=== PATIENT | male | born 1950 | race Caucasian/White ===

== ENCOUNTER 2025-07-27 21:20 | Observation (INO) | payer OTHER, SELFPAY ==
[2025-07-27 15:13] VITALS: BP 166/90
[2025-07-27 17:25] VITALS: BP 150/136
[2025-07-27 18:00] VITALS: BP 150/85
[2025-07-27] MEDS: MORPHINE SULFATE 4 MG IV (18:24)
[2025-07-27] MEDS: DECADRON 10 MG IV (18:24)
[2025-07-27 18:35] VITALS: BMI 40.9
[2025-07-27 18:44] LABS: Hematocrit 42.0 % (39.0-52.0); Hemoglobin 14.0 g/dL (13.0-18.0); Mean Corp Hgb Conc. 33.3 g/dL (33.0-37.0); Mean Corpuscular Volume 87.5 fL (80.0-94.0); Nucleated Red Blood Cells % 0 % (-); Platelet Count 276 10^3/uL (130-400); Red Cell Dist. Width 14.6 % (11.5-14.5)
[2025-07-27 19:01] LABS: ALT (SGPT) 25 U/L (0-50); AST (SGOT) 25 U/L (17-59); Albumin 4.5 g/dl (3.5-5.0); Alkaline Phosphatase 71 U/L (38-126); Blood Urea Nitrogen 14 mg/dl (9-20); Calcium 9.6 mg/dl (8.4-10.2); Carbon Dioxide 28 mmol/L (22-30); Chloride 103 mmol/L (98-107); Estimated Creatinine Clearance 97 ml/min; Glucose 99 mg/dl (70-99); Potassium 4.2 mmol/L (3.5-5.1); Sodium 136 mmol/L (135-145); Total Protein 7.4 g/dl (6.3-8.2); eGFR > 60.00
--- NOTE | 2025-07-27 19:22 | ED.GENMED ---
History of Present Illness
General
Chief Complaint: Generalized Pain
Time Seen by Provider: 07/27/25 17:46
History of Present Illness
History of Present Illness:
75-year-old male with history of spinal stenosis, PE on Xarelto presenting to the emergency department for right-sided inguinal pain. Patient reports symptoms started yesterday, woke up with the pain. Denies any known injury or trauma. Reports
that it was initially in bilateral hips, however has since progressed to just right side. He went to urgent care at [facility], had x-rays done which were negative. He was told to schedule an outpatient MRI. He notes that he cannot get an MRI until
August 03. He presents for persistent pain and pain with ambulation. Denies numbness or tingling. Denies bowel or bladder issues. Denies fever. He took Tylenol prior to arrival with mild improvement of pain. The provider at [facility]
started him on a Medrol Dosepak which he has not yet started. Denies additional acute medical complaints.
Phy Exam
Physical Exam
Physical Exam:
General: Well-appearing, no clinical signs of dehydration, nontoxic and in no acute distress
HEENT: protecting airway
Neck: appears supple
CV: Normal heart rate, regular rhythm
Resp: No accessory muscle use, no increased work of breathing, lungs clear to auscultation bilaterally
Abd: Soft and non-distended, no tenderness to palpation, normal bowel sounds
Extremities: No deformities, no swelling. No tenderness to the spine or lumbar musculature. Mild tenderness to the right inguinal region. No overlying skin changes. No palpation of a hernia. Range of motion of the right lower extremity is
limited secondary to pain, grossly intact. Distal sensation and pulses intact. No swelling or erythema
Neuro: alert, no focal neurologic deficit
: deferred
Rectal: deferred
Psych: Normal affect
Skin: Intact
Course
Orders/Labs/Results
Orders:
Orders
07/27/25 18:12
CT Abd/pelvis W Iv Cont Urgent
Comment:
Reason For Exam: right groin pain
Dexamethasone Sod Phosphate [Decadron] 10 mg IV NOW STA
Morphine Sulfate 4 mg IV NOW STA
07/27/25 18:20
Complete Blood Count/With Diff Urgent
Comprehensive Metabolic Panel Urgent
07/27/25 19:04
diazePAM [Valium Injection] 2 mg IV NOW STA
Abnormal Lab Results
07/27/25
18:20
RDW 14.6 H %
(11.5-14.5)
MPV 10.5 H fL
(7.4-10.4)
Absolute Monos (auto) 0.9 H 10^3/uL
(0.1-0.6)
Monocytes % 10.5 H %
(1.7-9.3)
Total Bilirubin 1.5 H mg/dl
(0.2-1.3)
07/27/25 18:20
07/27/25 18:20
Vital Signs
Initial and Last Documented VS:
Initial Vital Signs
Temp Pulse Resp BP Pulse Ox
98.8 F 81 20 166/90 96
07/27/25 15:13 07/27/25 15:13 07/27/25 15:13 07/27/25 15:13 07/27/25 15:13
Last Documented Vital Signs
Temp Pulse Resp BP Pulse Ox
98.8 F 86 25 150/136 95
07/27/25 15:13 07/27/25 17:30 07/27/25 17:30 07/27/25 17:25 07/27/25 19:25
MDM/Problems Addressed
MDM/Problems Addressed:
75-year-old male with history of PE on Xarelto presenting to the emergency department for right-sided hip/inguinal pain. Vital signs are significant for mild hypertension.
On exam, patient is resting comfortably, no significant distress. Pain is particularly expressed with range of motion to the right lower extremity, focused to the right inguinal region. Ultimately suspect likely radiculopathy. Lower suspicion for
fracture or malalignment in the absence of direct trauma. No tenderness to the spine with lower suspicion for any significant lumbar pathology. No signs of infection, afebrile, no erythema or warmth. Low concern for any spinal compromise with
sensation and motor grossly intact. No red flag symptoms, denies any bowel or bladder issues. Reportedly normal x-rays prior to arrival. No indication for emergent MRI. Will treat patient's pain. CT imaging to ensure no additional acute
pathology given location in the inguinal region. Without present concern for DVT, anticoagulated and compliant with anticoagulation.
20:20 - Labs unremarkable and CT without acute pathology. Patient was able to stand up, however cannot bear weight. For this reason unsafe disposition home. Will admit for pain control and PT consultation
*Pulse Oximetry
SaO2: 95
Oxygen Mode of Delivery: Room air
Patient hypoxic: no
*Critical Care Note
Total Time (30-74mins, 75-104mins- exclusive of procedures): Not Applicable
ED Attending Note
-
Portions of this chart may have been created with voice recognition software.� Occasional wrong word or��sound alike� substitutions may have occurred due to the inherent limitations of voice recognition software.
Discharge Plan
Departure
Prescriptions:
No Action
Xarelto 20 mg Tablet
20 mg PO DAILY
Referrals:
Carlos Etienne DO [Family Provider, Family Practice]
Interventions
Interventions:
*Risk Screen - Suicide Last Done: 07/27/25 15:13
*Neglect/Abuse Screening Last Done: 07/27/25 15:13
Discharge Date and Time
Print Language: BULGARIAN
[2025-07-27] MEDS: VALIUM INJECTION 2 MG IV (19:51)
[2025-07-27 20:50] VITALS: BP 141/98
[2025-07-27 20:56] VITALS: BP 141/98
--- NOTE | 2025-07-27 20:57 | HPS.HSE ---
Addendum entered and electronically signed by Roe Pratt DO 07/27/25 21:39:
Patient seen and examined independently. Agree with findings and plan as set forth by Danay Fritz PA-C.
Patient is a 75y M with PMH significant for hypertension and spinal stenosis who presents c/o R groin pain. Patient states that he woke with this pain yesterday AM. 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 No other specific injury, trauma, etc.
No fall. He did his usual activities yesterday during the day and today his pain was notably worse. Pain is localized to the R groin. Pain is worse with standing / walking.
No numbness / tingling in the RLE. No back pain. No weakness.
Ass:
Right Groin Pain
Benign Hypertension
Asthma without Acute Exacerbation
Spinal Stenosis
History of Pulmonary Embolism
Plan:
Observe overnight for further evaluation and treatment.
Symptoms / exam and imaging findings (or lack thereof) seem c/w R groin soft tissue injury.
Apparently unable to stand / walk in the ED preventing discharge.
Pain control overnight.
PT eval in AM.
Can pursue MRI as an outpatient as planned, but doubt it will alter plan of care / management.
Continue usual outpatient medication regimen.
Original Note:
Family Physician
-
Family Physician: Carlos Etienne
Chief Complaint
-
Right Groin Pain
History of Present Illness
Patient is a 75 y/o male past medical history of hypertension, hyperlipidemia, pulmonary embolism on anticoagulation, asthma, BPH and spinal stenosis who presents with right groin pain. Patient reports he awoke yesterday morning and had right groin
with movement of the right leg and walking. Patient states pain was not as severe. 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 He reports inability
to stand due severity of the pain in the right groin. He denies any back pain, or pain extedning down the leg. He denies any numbness, tingling or weakness of the leg.
Medical History
Past Medical History
Past Medical History: Reports Other
Additional Past Medical History:
Pulmonary Embolism
Essential Hypertension
Hyperlipidemia
Asthma
Spinal Stenosis with Cervical Radiculopathy
BPH
Past Surgical History: Reports Other
Additional Past Surgical History:
Cervical Fusion
Lumbar Laminectomy
Social History
Tobacco: Former Smoker
Alcohol: Occasional
Family History
Family History: Not pertinent
Allergies / Home Medications
Allergies reflects when Allergies were last updated in [facility].
Home Medications with original date entered in [facility]
Allergy/Medication List:
Allergies
Allergy/AdvReac Type Severity Reaction Status Date / Time
naproxen (From Naprosyn) Allergy Anaphylaxis Verified 07/27/25 15:12
Home Medications
acetaminophen 650 mg tablet,extended release (Tylenol Arthritis Pain) 1,300 mg PO [id number] PRN mild pain 07/27/25
amlodipine 2.5 mg tablet (Norvasc) 2.5 mg PO HS Blood Pressure 07/27/25
atorvastatin 20 mg tablet (Lipitor) 20 mg PO QPM statin 07/27/25
loratadine 10 mg tablet (Claritin) 10 mg PO DAILY Allergies 07/27/25
methylprednisolone 4 mg tablets in a dose pack (Medrol (George)) 0 mg PO PER PKG DIR Infection 07/27/25
montelukast 10 mg tablet (Singulair) 10 mg PO QPM Allergies 07/27/25
pregabalin 200 mg capsule (Lyrica) 200 mg PO TID moderate pains 07/27/25
rivaroxaban 20 mg tablet (Xarelto) 20 mg PO DAILY a-fib 07/27/25
tamsulosin 0.4 mg capsule (Flomax) 0.4 mg PO DAILY bph 07/27/25
vitamin E 268 mg (400 unit) capsule 536 mg PO DAILY Supplement 07/27/25
zolpidem 10 mg tablet (Ambien) 10 mg PO HSPRN PRN sleep 07/27/25
Review of Systems
-
A 12 point ROS was completed and negative except as noted: Yes
Constitutional: Denies Fever or Chills
Respiratory: Denies Cough or Trouble Breathing
Cardiac: Denies Chest Pain or Palpitations
Abdomen/GI: Denies Abdominal Pain, Nausea, Vomiting, Diarrhea or Constipated
Musculoskeletal: Reports See HPI
Physical Exam
Vital Signs
Vital Signs
Temp Pulse Resp BP Pulse Ox
98.8 F 87 18 141/98 95
07/27/25 15:13 07/27/25 20:56 07/27/25 20:56 07/27/25 20:56 07/27/25 20:56
Physical Exam
General: Well Developed, Well Nourished and Obese
HEENT: Anicteric and Moist mucous membranes
Respiratory: Clear and Non Labored Respirations
Cardiac: S1/S2 and Regular Rhythm
GI: Soft, Non Tender and Other (Protuberant)
Rectal: Deferred by Provider
Musculoskeletal: No Clubbing, No Cyanosis and Other (Decreased range of motion particularly with flexion of the right hip due to pain)
Skin: Warm and Dry
Neuro: Awake, Alert, Oriented and Nonfocal/grossly intact
Psych: Calm
Laboratory Results
-
07/27/25 18:20
07/27/25 18:20
Laboratory Results
Total Bilirubin 1.5 mg/dl (0.2-1.3) H 07/27/25 18:20
AST 25 U/L (17-59) 07/27/25 18:20
ALT 25 U/L (0-50) 07/27/25 18:20
Alkaline Phosphatase 71 U/L (38-126) 07/27/25 18:20
Abd/Pelvis CT:
No CT evidence for an acute inflammatory process in the abdomen or pelvis.
Data Reviewed
-
CT Scan: Report Reviewed by me
Lab Data: Labs Reviewed by me
Impression/Plan
-
Right Groin Muscle Strain
-Patient unable to bear weight / ambulate in the emergency department due to pain
-Consult PT/OT
-Add Tylenol 1000mg TID
-Continue oxycodone PRN
-Continue Medrol Dose-George
-Unable to use NSAIDs while on anticoagulation
Hx Pulmonary Embolism
-Continue Xarelto
Essential Hypertension
-Continue amlodipine
Hyperlipidemia
-Continue atorvastatin
Asthma
-Continue Singulair
Spinal Stenosis with Cervical Radiculopathy
-Continue Lyrica
BPH
-Continue Flomax
[2025-07-27] MEDS: NORVASC 2.5 MG PO ×2 (21:40→23:12)
[2025-07-27 22:08] VITALS: BMI 39.6
[2025-07-27 23:09] VITALS: BP 146/80
[2025-07-27] MEDS: TYLENOL 1000 MG PO (23:12)
[2025-07-27] MEDS: MEDROL 24 MG PO (23:13)
[2025-07-27] MEDS: LYRICA 200 MG PO (23:41)
--- NOTE | 2025-07-28 00:47 | PTCARENOTE ---
received pt from ED at 2200 on 07/27. pt A&O x3. pt pulled from stretcher to bed. pt denies pain and does not offer any complaints at this time. pt made comfortable in bed, call pimentel within reach. plan of care ongoing.
[2025-07-28 07:19] VITALS: BP 147/77
[2025-07-28] MEDS: FLOMAX 0.4 MG PO (07:54)
[2025-07-28] MEDS: LYRICA 200 MG PO (07:54)
[2025-07-28] MEDS: XARELTO 20 MG PO (07:54)
[2025-07-28] MEDS: TYLENOL 1000 MG PO (07:54)
[2025-07-28 08:45] VITALS: BP 155/88; PULSE 105; O2SAT 95
[2025-07-28] MEDS: MEDROL 20 MG PO (09:34)
[2025-07-28 09:36] VITALS: BP 155/88; PULSE 101; O2SAT 95
[2025-07-28 11:00] VITALS: BP 135/76
--- NOTE | 2025-07-28 11:07 | W.DS.TRANS ---
DC Summary - Regional [employer]
-
Discharge Instructions:
Discharge Diagnosis/Procedures Muscle strain with resolved ambulatory
dysfunction
Diet Regular
Instructions:
Stand-Alone Forms:
Changes to Home Medications: No
Discharge Medications:
DC Medications w/original date entered in [email or web address]
acetaminophen 650 mg tablet,extended release (Tylenol Arthritis Pain) 1,300 mg PO [id number] PRN mild pain 07/27/25
amlodipine 2.5 mg tablet (Norvasc) 2.5 mg PO HS Blood Pressure 07/27/25
atorvastatin 20 mg tablet (Lipitor) 20 mg PO QPM statin 07/27/25
loratadine 10 mg tablet (Claritin) 10 mg PO DAILY Allergies 07/27/25
methylprednisolone 4 mg tablets in a dose pack (Medrol (George)) 0 mg PO PER PKG DIR Infection 07/27/25
montelukast 10 mg tablet (Singulair) 10 mg PO QPM Allergies 07/27/25
pregabalin 200 mg capsule (Lyrica) 200 mg PO TID moderate pains 07/27/25
rivaroxaban 20 mg tablet (Xarelto) 20 mg PO DAILY a-fib 07/27/25
tamsulosin 0.4 mg capsule (Flomax) 0.4 mg PO DAILY bph 07/27/25
vitamin E 268 mg (400 unit) capsule 536 mg PO DAILY Supplement 07/27/25
zolpidem 10 mg tablet (Ambien) 10 mg PO HSPRN PRN sleep 07/27/25
Home Medication Changes
Pending Results: No
--- NOTE | 2025-07-28 11:40 | CM ---
Alert awake oriented patient who lives with Amie Costa spouse in a 1 story home with 2 steps to enter. His has a respiratory care technician Alba who can drive pt home today.Pt agrees with discharge today.Offered VN he declined need.Jess letter given and
explained to patient . Jess signed on chart.
Pt has CPAP from [facility].
No hx of PT or SNF.
Pharmacy [facility]
PCP Dr Etienne
PLAN Home no needs
== END 2025-07-28 12:09 | disposition home or self-care (01) ==
LOC: 4 EAST ACU 21:20
PROVIDERS: ADMITTING PHYSICIAN Hospitalist; ATTENDING PHYSICIAN Internal Medicine; EMERGENCY PHYSICIAN Student in an Organized Health Care Education/Training Program; FAMILY PHYSICIAN Family Medicine
DX: S39.011A Strain of muscle, fascia and tendon of abdomen, initial encounter (principal); X58.XXXA Exposure to other specified factors, initial encounter; R10.31 Right lower quadrant pain; I10 Essential (primary) hypertension; M79.604 Pain in right leg; J45.909 Unspecified asthma, uncomplicated; E78.5 Hyperlipidemia, unspecified; M54.12 Radiculopathy, cervical region; M48.02 Spinal stenosis, cervical region; N40.0 Benign prostatic hyperplasia without lower urinary tract symptoms; Z87.891 Personal history of nicotine dependence; Z98.1 Arthrodesis status; Z88.6 Allergy status to analgesic agent; Z79.899 Other long term (current) drug therapy; Z79.01 Long term (current) use of anticoagulants; Z86.711 Personal history of pulmonary embolism
CPT/HCPCS: 74177; 80053; 85025; 96374; 96375; 97161; 97165; 99284; G0378; Q9967